=== PATIENT | female | born 2000 | race Asian ===

== ENCOUNTER 2021-07-21 20:35 | Emergency (ER) | payer OTHER ==
[~2021-07-21] VITALS: Ht 162.6 cm; Wt 44.5 kg
--- NOTE | 2021-07-21 21:35 | NUR ---
Dr. Encarnacion at bedside for MSE.
[2021-07-21 22:02] LABS: HEMATOCRIT 40.5 % (31.2-41.9); MEAN CORPUSCULAR HEMOGLOBIN 29.1 uug (24.7-32.8); MEAN CORPUSCULAR VOLUME 87.8 fL (75.5-95.3); PLATELET COUNT (AUTO) 288 K/uL (179-408)
[2021-07-21 22:06] LABS: CREATININE 0.8 mg/dL (0.6-1.3); POTASSIUM 3.9 mmol/L (3.5-5.1)
[2021-07-21 22:11] LABS: BILIRUBIN,DIRECT 0.1 mg/dL (0.0-0.2); BILIRUBIN,TOTAL 0.2 mg/dL (0.2-1.0); TOTAL PROTEIN, SERUM 8.1 g/dL (6.4-8.2)
[2021-07-21 22:36] LABS: MAGNESIUM 2.2 mg/dL (1.8-2.4)
[2021-07-22] MEDS ORDERED: CYANOCOBALAMIN 1000 MCG/ML VIAL IM ONE
[2021-07-22] MEDS ORDERED: CYANOCOBALAMIN 1000 MCG/ML VIAL ONE (00:04)
--- NOTE | 2021-07-22 00:14 | NUR ---
Patient discharged to home in stable condition. Written and verbal after care instructions given. Patient verbalizes understanding of instructions. Stressed follow up or return to ER for worsening s/s. Pt out of ER with steady gait, no acute signs of distress, VSS, all belongings taken, provided pt with copies of lab results.
[2021-07-22 00:15] VITALS: BP 125/70
== END 2021-07-22 00:15 | disposition home or self-care (01) ==
LOC: ER 20:38
DX: R53.1 Weakness (principal); G40.909 Epilepsy, unspecified, not intractable, without status epilepticus; Z83.3 Family history of diabetes mellitus
CPT/HCPCS: 36415; 80048; 80076; 82550; 82607; 83735; 85025; 96372; 99283; J3420; A4663